=== PATIENT | female | born 1950 | race Asian ===

== ENCOUNTER 2016-12-13 21:10 | Observation (INO) | payer OTHER ==
--- NOTE | 2016-12-13 21:11 | EDPHY ---
H & P Time Seen by Provider: 12/13/16 21:11 HPI/ROS: CHIEF COMPLAINT: Chest pain HISTORY OF PRESENT ILLNESS: EMS arrival. Patient was sitting at her desk at work this evening when she had sudden onset of substernal chest discomfort which was severe. She describes it as a heaviness and radiated up into her neck on both sides, not exertional or pleuritic or positional. Not associated with nausea diaphoresis or shortness of breath. The pain was mild at the start and then proceeded to get worse. Described as a heaviness. Did not radiate to her back. Not associated with weakness or numbness in extremities. REVIEW OF SYSTEMS: Eye: no change in vision ENT: no sore throat Cardiac: No fainting Pulmonary: no cough or SOB Abdomen: no vomiting, diarrhea, abdominal pain Musculoskeletal: no back pain or recent trauma or leg swelling. Skin: no rash Neuro: no headache Constitutional: no fever : no urinary symptoms A comprehensive 10 point review of systems is otherwise negative aside from elements mentioned in the history of present illness. PAST MEDICAL HISTORY: Hypertension, hypercholesterolemia, thyroid Family history: Negative for DVT or PE Social history: Nonsmoker. PCP in [place]. No recent travel or immobilization. General Appearance: Alert and conversant, cooperative. Eyes: No scleral icterus. ENT, Mouth: Normal mucous membranes. Respiratory: Normal respiratory effort, breath sounds equal, lungs are clear to auscultation. Cardiovascular: Regular rate and rhythm. Gastrointestinal: Abdomen is soft and non tender. Neurological: Alert and oriented x3. Normally conversant. Face symmetric, normal movement and sensation in all extremities. 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 Skin: Warm and dry, no rashes. Musculoskeletal: No peripheral edema and no joint swelling. No calf tenderness. Psychiatric: Not agitated. Emergency Department course/MDM: History and risk factors concerning for acute coronary syndrome. EKG reviewed shows Q-waves in V1 and V2 but no acute ST elevation. Patient received oral aspirin in the field by EMS. Still has a little bit of residual chest discomfort on arrival, and systolic blood pressure noted at 225. IV nitroglycerin drip, troponin, chest x-ray. 2200: No chest pain now. Patient initially wanted to leave because she "does not like hospitals" but she is warned that my concern for acute coronary syndrome is high, her family is attempting to get her to agree to stay. Recommended admission for coronary artery disease evaluation, risk stratification. I believe she is at least moderate risk for ACS. Constitutional: Initial Vital Signs Temperature (C) 36.9 C 12/13/16 21:13 Heart Rate 80 12/13/16 21:13 Respiratory Rate 14 12/13/16 21:13 Blood Pressure 225/79 H 12/13/16 21:13 O2 Sat (%) 96 12/13/16 21:13 O2 Delivery Mode Nasal Cannula O2 (L/minute) 2 Allergies/Adverse Reactions: No Known Allergies Allergy (Verified 12/13/16 21:19) Home Medications: Medication Instructions Recorded Atorvastatin Calcium [Lipitor 40 40 mg PO DAILY 12/13/16 mg (*)] Cholecalciferol Vit D3 [Vitamin D3 1,000 units PO DAILY 12/13/16 (*)] Levothyroxine [Synthroid 25 mcg 25 mcg PO DAILY@12/13/16 (*)] [place]-3 Fatty Acids [Fish Oil 1000 1,000 mg PO DAILY 12/13/16 mg (*)] Venlafaxine Xr [Effexor Xr 75MG 75 mg PO DAILY 12/13/16 (*)] amLODIPine BESYLATE [Amlodipine 10 mg PO DAILY@12/13/16 Besylate] Medical Decision Making - Diagnostics EKG Interpretation: 12-lead EKG interpreted by me; official reading is in trace master. My interpretation is sinus rhythm, Q-waves noted in V1 and V2. No acute ST elevation. Imaging Results: Imaging Impressions Chest X-Ray 12/13/16 21:21 Impression: No significant radiographic abnormality. Specifically, a source for chest pain is not identified. Differential Diagnosis: Differential diagnosis considered for chest pain including but not limited to myocardial ischemia, aortic dissection, pericarditis, pulmonary embolus, chest wall pain, pleural inflammation and pulmonary infectious causes. Consult/Admit Bed Type: [place] [id number] - Data Points Laboratory Results: Laboratory Results 12/13/16 21:20 12/13/16 21:20 12/13/16 12/13/16 21:20 21:20 WBC 6.73 10^3/uL 10^3/uL (3.80-9.50) RBC 5.23 10^6/uL 10^6/uL (4.18-5.33) Hgb 15.4 g/dL g/dL (12.6-16.3) Hct 46.7 % % (38.0-47.0) MCV 89.3 fL fL (81.5-99.8) MCH 29.4 pg pg (27.9-34.1) MCHC 33.0 g/dL g/dL (32.4-36.7) RDW 12.4 % % (11.5-15.2) Plt Count 344 10^3/uL 10^3/uL (150-400) MPV 10.2 fL fL (8.7-11.7) Neut % (Auto) 50.4 % % (39.3-74.2) Lymph % (Auto) 41.3 % % (15.0-45.0) [place] % (Auto) 7.0 % % (4.5-13.0) Eos % (Auto) 0.4 % L % (0.6-7.6) Baso % (Auto) 0.6 % % (0.3-1.7) Nucleat RBC Rel Count 0.0 % % (0.0-0.2) Absolute Neuts (auto) 3.39 10^3/uL 10^3/uL (1.70-6.50) Absolute Lymphs (auto) 2.78 10^3/uL 10^3/uL (1.00-3.00) Absolute Monos (auto) 0.47 10^3/uL 10^3/uL (0.30-0.80) Absolute Eos (auto) 0.03 10^3/uL 10^3/uL (0.03-0.40) Absolute Basos (auto) 0.04 10^3/uL 10^3/uL (0.02-0.10) Absolute Nucleated RBC 0.00 10^3/uL 10^3/uL (0-0.01) Immature Gran % 0.3 % % (0.0-1.1) Immature Gran # 0.02 10^3/uL 10^3/uL (0.00-0.10) Sodium 141 mEq/L mEq/L (134-144) Potassium 4.5 mEq/L mEq/L (3.5-5.2) Chloride 102 mEq/L mEq/L (97-110) Carbon Dioxide 24 mEq/l mEq/l (22-31) Anion Gap 15 mEq/L mEq/L (8-16) BUN 19 mg/dL mg/dL (7-23) Creatinine 0.8 mg/dL mg/dL (0.6-1.0) Estimated GFR > 60 Glucose 106 mg/dL H mg/dL (70-100) Calcium 10.0 mg/dL mg/dL (8.5-10.4) Troponin I < 0.012 ng/mL ng/mL (0-0.034) Medications Given: Discontinued Medications Nitroglycerin/Dextrose (Nitroglycerin 200 Mcg/Ml (Premix)) 250 mls @ 0 mls/hr IV CONT ONE; Titrate PRN Reason: Protocol Stop: 12/13/16 21:22 Last Admin: 12/13/16 21:23 Dose: 250 mls Departure - Departure Disposition: [facility] Inpatient Acute Clinical Impression: Chest pain Qualifiers: Chest pain type: unspecified Qualified Code(s): R07.9 - Chest pain, unspecified Condition: Good
[2016-12-13] MEDS ORDERED: NITROGLYCERIN/D5W 50 MG/250 ML BOTTLE IV ONE (21:19)
--- NOTE | 2016-12-13 21:19 | CPEKG ---
Heart Rate: 78 RR Interval: 769 P-R Interval: 140 QRSD Interval: 76 QT Interval: 408 QTC Interval: 465 P [place]: 46 QRS [place]: 53 T Wave [place]: 45 EKG Severity - ABNORMAL ECG - EKG Impression: SINUS RHYTHM EKG Impression: CONSIDER ANTEROSEPTAL INFARCT Electronically Signed By: Tra Pereira 13-Dec-2016 21:27:11
[2016-12-13] MEDS: NITROGLYCERIN/DEXTROSE 250 ML IV ONE ×2 (21:23→23:12)
[2016-12-13 21:32] LABS: % IMMATURE GRANULYOCYTES 0.3 % (0.0-1.1); ABSOLUTE IMMATURE GRANULOCYTES 0.02 10^3/uL (0.00-0.10); ADD DIFF? NO; ADD MORPH? NO; ADD SCAN? NO; ATYPICAL LYMPHOCYTE FLAG 20 (0-99); FRAGMENT RBC FLAG 0 (0-99); HEMATOCRIT 46.7 % (38.0-47.0); HEMOGLOBIN 15.4 g/dL (12.6-16.3); LEFT SHIFT FLG 0 (0-99); LIPEMIA HEMOLYSIS FLAG 80 (0-99); MEAN CELL HEMOGLOBIN 29.4 pg (27.9-34.1); MEAN CELL VOLUME 89.3 fL (81.5-99.8); MEAN PLATELET VOLUME 10.2 fL (8.7-11.7); PLATELET CLUMPS FLAG 10 (0-99); PLATELET COUNT 344 10^3/uL (150-400); RED BLOOD CELL COUNT 5.23 10^6/uL (4.18-5.33); RED CELL DISTRIBUTION WIDTH 12.4 % (11.5-15.2)
[2016-12-13 21:44] LABS: ANION GAP 15 mEq/L (8-16); CARBON DIOXIDE 24 mEq/l (22-31); CHLORIDE 102 mEq/L (97-110); CREATININE 0.8 mg/dL (0.6-1.0); GLOMERULAR FILTRATION RATE > 60; GLUCOSE 106 mg/dL (70-100); POTASSIUM 4.5 mEq/L (3.5-5.2); SODIUM 141 mEq/L (134-144)
[2016-12-13 21:55] LABS: TROPONIN I < 0.012 ng/mL (0-0.034)
[2016-12-13] MEDS ORDERED: ONDANSETRON 4 MG/2 ML VIAL IVP PRN (23:47)
[2016-12-13] MEDS ORDERED: ACETAMINOPHEN 325 MG TAB PO PRN (23:47)
[2016-12-13] MEDS ORDERED: ONDANSETRON DISINTEGRATING 4 MG TAB PO PRN (23:47)
[2016-12-13] MEDS ORDERED: LABETALOL HCL 200 MG TAB PO ONE (23:52)
[2016-12-14] MEDS ORDERED: diphenhydrAMINE 25 MG CAP PO PRN
[2016-12-14] MEDS ORDERED: diphenhydrAMINE 25 MG CAP PO ONE (00:01)
--- NOTE | 2016-12-14 00:39 | PDGENHP ---
History and Physical - Chief Complaint Chest pain - History of Present Illness 62 yo F w/ hx of HTN, HLD, depression, and hypothyroid presenting after episode of chest pain. Patient reports episode of acute onset chest pain @8:20 PM while working. She had severe chest pain that lasted 3-5 min, radiated up right neck, and was associated with blurred vision. The pain abated briefly and then returned until she was give ASA 325 x1. At this point the pain improved. Upon arrival to the ED, she was noted to have SBP > 220. She was placed on a nitro drip and her symptoms improved. She was chest pain free at the time of my evaluation. History Information - Allergies/Home Medication List Allergies/Adverse Reactions: No Known Allergies Allergy (Verified 12/13/16 21:19) Home Medications: Atorvastatin Calcium [Lipitor 40 mg (*)] 40 mg PO DAILY 12/13/16 [Last Taken 10/24] Cholecalciferol Vit D3 [Vitamin D3 (*)] 1,000 units PO DAILY 12/13/16 [Last Taken 12/13/16] Levothyroxine [Synthroid 25 mcg (*)] 25 mcg PO DAILY@12/13/16 [Last Taken 10/24] [place]-3 Fatty Acids [Fish Oil 1000 mg (*)] 1,000 mg PO DAILY 12/13/16 [Last Taken 12/13/16] Venlafaxine Xr [Effexor Xr 75MG (*)] 75 mg PO DAILY 12/13/16 [Last Taken ] amLODIPine BESYLATE [Amlodipine Besylate] 10 mg PO DAILY@12/13/16 [Last Taken 12/13/16 01:00] I have personally reviewed and updated: family history, medical history - Past Medical History hypertension, hyperlipidemia Additional medical history: Depression, hypothyroid - Surgical History Reports: no pertinent surgical hx - Family History Negative for: CAD - Social History Smoking Status: Never smoked Alcohol Use: None Drug Use: None Review of Systems ROS: 10pt was reviewed & negative except for what was stated in HPI & below Physical Exam Temp Pulse Resp BP Pulse Ox 36.6 C 74 14 165/89 H 99 12/13/16 23:25 12/14/16 00:00 12/14/16 00:00 12/14/16 00:00 12/14/16 00:00 Constitutional: no apparent distress, appears nourished Eyes: PERRL, EOMI Ears, Nose, Mouth, Throat: moist mucous membranes, no oral mucosal ulcers Cardiovascular: regular rate and rhythym, no murmur, rub, or gallop Respiratory: no respiratory distress, clear to auscultation Gastrointestinal: normoactive bowel sounds, soft, non-tender abdomen Skin: warm, no rashes or abrasions Musculoskeletal: full muscle strength, no muscle tenderness Neurologic: AAOx3, CN II-XII Intact Psychiatric: interacting appropriately, not anxious Lab Data & Imaging Review 12/13/16 21:20 12/13/16 21:20 WBC 6.73 10^3/uL (3.80-9.50) 12/13/16 21:20 RBC 5.23 10^6/uL (4.18-5.33) 12/13/16 21:20 Hgb 15.4 g/dL (12.6-16.3) 12/13/16 21:20 Hct 46.7 % (38.0-47.0) 12/13/16 21:20 MCV 89.3 fL (81.5-99.8) 12/13/16 21:20 MCH 29.4 pg (27.9-34.1) 12/13/16 21:20 MCHC 33.0 g/dL (32.4-36.7) 12/13/16 21:20 RDW 12.4 % (11.5-15.2) 12/13/16 21:20 Plt Count 344 10^3/uL (150-400) 12/13/16 21:20 MPV 10.2 fL (8.7-11.7) 12/13/16 21:20 Neut % (Auto) 50.4 % (39.3-74.2) 12/13/16 21:20 Lymph % (Auto) 41.3 % (15.0-45.0) 12/13/16 21:20 [place] % (Auto) 7.0 % (4.5-13.0) 12/13/16 21:20 Eos % (Auto) 0.4 % (0.6-7.6) L 12/13/16 21:20 Baso % (Auto) 0.6 % (0.3-1.7) 12/13/16 21:20 Nucleat RBC Rel Count 0.0 % (0.0-0.2) 12/13/16 21:20 Absolute Neuts (auto) 3.39 10^3/uL (1.70-6.50) 12/13/16 21:20 Absolute Lymphs (auto) 2.78 10^3/uL (1.00-3.00) 12/13/16 21:20 Absolute Monos (auto) 0.47 10^3/uL (0.30-0.80) 12/13/16 21:20 Absolute Eos (auto) 0.03 10^3/uL (0.03-0.40) 12/13/16 21:20 Absolute Basos (auto) 0.04 10^3/uL (0.02-0.10) 12/13/16 21:20 Absolute Nucleated RBC 0.00 10^3/uL (0-0.01) 12/13/16 21:20 Immature Gran % 0.3 % (0.0-1.1) 12/13/16 21:20 Immature Gran # 0.02 10^3/uL (0.00-0.10) 12/13/16 21:20 Sodium 141 mEq/L (134-144) 12/13/16 21:20 Potassium 4.5 mEq/L (3.5-5.2) 12/13/16 21:20 Chloride 102 mEq/L (97-110) 12/13/16 21:20 Carbon Dioxide 24 mEq/l (22-31) 12/13/16 21:20 Anion Gap 15 mEq/L (8-16) 12/13/16 21:20 BUN 19 mg/dL (7-23) 12/13/16 21:20 Creatinine 0.8 mg/dL (0.6-1.0) 12/13/16 21:20 Estimated GFR > 60 12/13/16 21:20 Glucose 106 mg/dL (70-100) H 12/13/16 21:20 Calcium 10.0 mg/dL (8.5-10.4) 12/13/16 21:20 Troponin I < 0.012 ng/mL (0-0.034) 12/13/16 21:20 EKG Interpretation: Positive for: Q waves (V1, V2) Assessment & Plan Assessment: 62 yo F w/ HTN, HLD, hypothyroid, and depression presenting after episode of acute chest pain and noted to be severely hypertensive on arrival. Plan: 1. Chest pain - Certainly concerning for cardiac chest pain noting severity, radiation to neck, and relief with ASA/nitro. Severe HTN could be contributory or causative as well. Initial troponin negative and ECG with Q waves in V1, V2. Patient chest pain free after nitro drip and control of BP. - S/p ASA 325 mg x1 - Monitor on telemetry, trend troponin - BP control as below - Cardiology consult 2. Uncontrolled HTN - SBP > 220 on arrival, but this was in the setting of pain and stress. SBP 160-180 after nitro drip and time to calm down. On amlodipine 10 mg qD only as outpatient. - Will likely need additional agent for control - Will aim to maintain BP <180 to limit LV strain 3. Hypothyroid - On LTX 4. Depression - On venlafaxine Diet - NPO Ppx - LMWH Code - Full Dispo - Admit to observation for ACS r/o. May become inpatient if objective evidence of ischemia
[2016-12-14 03:31] LABS: % IMMATURE GRANULYOCYTES 0.2 % (0.0-1.1); ABSOLUTE IMMATURE GRANULOCYTES 0.01 10^3/uL (0.00-0.10); ADD DIFF? NO; ADD MORPH? NO; ADD SCAN? NO; ATYPICAL LYMPHOCYTE FLAG 10 (0-99); FRAGMENT RBC FLAG 0 (0-99); HEMATOCRIT 40.6 % (38.0-47.0); HEMOGLOBIN 13.6 g/dL (12.6-16.3); LEFT SHIFT FLG 0 (0-99); LIPEMIA HEMOLYSIS FLAG 80 (0-99); MEAN CELL HEMOGLOBIN 29.8 pg (27.9-34.1); MEAN CELL HEMOGLOBIN CONCENTR. 33.5 g/dL (32.4-36.7); MEAN CELL VOLUME 88.8 fL (81.5-99.8); PLATELET CLUMPS FLAG 0 (0-99); PLATELET COUNT 284 10^3/uL (150-400); RED BLOOD CELL COUNT 4.57 10^6/uL (4.18-5.33); RED CELL DISTRIBUTION WIDTH 12.4 % (11.5-15.2)
[2016-12-14 04:13] LABS: ANION GAP 13 mEq/L (8-16); CALCIUM 9.1 mg/dL (8.5-10.4); CARBON DIOXIDE 23 mEq/l (22-31); CHLORIDE 108 mEq/L (97-110); CREATININE 0.7 mg/dL (0.6-1.0); GLOMERULAR FILTRATION RATE > 60; GLUCOSE 87 mg/dL (70-100); MAGNESIUM 2.3 mg/dL (1.6-2.3); POTASSIUM 3.5 mEq/L (3.5-5.2); SODIUM 144 mEq/L (134-144)
[2016-12-14 04:25] LABS: TROPONIN I < 0.012 ng/mL (0-0.034)
[2016-12-14] MEDS ORDERED: ENOXAPARIN 40 MG/0.4 ML SYR SC SCH (09:00)
[2016-12-14] MEDS ORDERED: TEMAZEPAM 15 MG CAP PO PRN (10:29)
[2016-12-14] MEDS ORDERED: ASPIRIN EC 325 MG TAB PO ONE (10:29)
[2016-12-14] MEDS ORDERED: NITROGLYCERIN 0.4 MG BTL SL PRN (10:29)
[2016-12-14] MEDS ORDERED: DIAZEPAM 5 MG TAB PO ONE (10:29)
--- NOTE | 2016-12-14 10:34 | PDCARCONS ---
Cardiology Consult Reason for Consult: Chest pain Chief Complaint: chest pain History of Present Illness: 62-year-old female, history of hypertension controlled on medical therapy, history of prediabetes, history of hyperlipidemia on statin admitted with acute onset substernal chest pressure radiating to her jaw. She had 2 episodes 5 minutes apart. They occurred during extreme emotional stress. They are not associated with shortness of breath, nausea, vomiting, diaphoresis. She came to the emergency department for further evaluation and was admitted. Patient denies PND orthopnea, palpitations, syncope, near syncope. General review of systems is abnormal for decreased appetite, loss of taste of food, 4 lb weight loss. She is under considerable stress at work. Cardiac Risk includes hypertension, diabetes, hyperlipidemia. There is no family history. She is a nonsmoker. She is currently not having active chest pressure. History Information - Allergies/Home Medication List Allergies/Adverse Reactions: No Known Allergies Allergy (Verified 12/13/16 21:19) Home Medications: Atorvastatin Calcium [Lipitor 40 mg (*)] 40 mg PO DAILY 12/13/16 [Last Taken 10/24] Cholecalciferol Vit D3 [Vitamin D3 (*)] 1,000 units PO DAILY 12/13/16 [Last Taken 12/13/16] Levothyroxine [Synthroid 25 mcg (*)] 25 mcg PO DAILY@12/13/16 [Last Taken 10/24] [place]-3 Fatty Acids [Fish Oil 1000 mg (*)] 1,000 mg PO DAILY 12/13/16 [Last Taken 12/13/16] Venlafaxine Xr [Effexor Xr 75MG (*)] 75 mg PO DAILY 12/13/16 [Last Taken ] amLODIPine BESYLATE [Amlodipine Besylate] 10 mg PO DAILY@12/13/16 [Last Taken 12/13/16 01:00] I have personally reviewed and updated: family history, medical history, social history, surgical history - Past Medical History diabetes type 2, hypertension, hyperlipidemia - Surgical History Reports: no pertinent surgical hx - Social History Smoking Status: Never smoked Alcohol Use: None Drug Use: None Cardiac History - Cardiac History Cardiac Risk Factors: hypertension (>140/90), lipidemia, diabetes mellitus Timing/Duration: Days Severity: severe Severity Scale: 8 Location: substernal Activities at Onset: emotional stress, rest Modifying Factors: improves with: rest Associated Symptoms: other (Radiate to jaw) ERNESTO Risk Evaluation age greater or equal to 65: no greater or equal to 3 CAD risk factors: yes known CAD(stenosis greater or eqaul to 50%): no ASA use in past 7 days: yes severe angina(greater or equal to 2 episodes in 24hrs): yes EKG ST changes greater or equal to 0.5mm: no positive cardiac marker: no Total Score: 3 ERNESTO Score: 13.2% risk Physical Exam Temp Pulse Resp BP Pulse Ox 36.7 C 63 19 141/75 H 96 12/14/16 07:39 12/14/16 07:39 12/14/16 07:39 12/14/16 07:39 12/14/16 07:39 Constitutional: no apparent distress, appears nourished Eyes: PERRL, anicteric sclera Ears, Nose, Mouth, Throat: moist mucous membranes Cardiovascular: regular rate and rhythym, no murmur, rub, or gallop, No JVD Peripheral Pulses: 1+: carotid (R), carotid (L), femoral (R), femoral (L), dorsalis-pedis (R), dorsalis-pedis (L) Respiratory: no respiratory distress, no rales or rhonchi, clear to auscultation Gastrointestinal: normoactive bowel sounds, soft, non-tender abdomen, no palpable masses Genitourinary: no bladder fullness Skin: warm, normal color, no rashes or abrasions Musculoskeletal: full muscle strength, no muscle tenderness, No joint effusion Neurologic: AAOx3, sensation intact bilaterally, No weakness Psychiatric: interacting appropriately, not anxious Lymph, Heme, Immunologic: no cervical LAD, no supraclavicular LAD Lab and Imaging 12/14/16 03:15 12/14/16 03:15 WBC 6.10 10^3/uL (3.80-9.50) 12/14/16 03:15 RBC 4.57 10^6/uL (4.18-5.33) 12/14/16 03:15 Hgb 13.6 g/dL (12.6-16.3) 12/14/16 03:15 Hct 40.6 % (38.0-47.0) 12/14/16 03:15 MCV 88.8 fL (81.5-99.8) 12/14/16 03:15 MCH 29.8 pg (27.9-34.1) 12/14/16 03:15 MCHC 33.5 g/dL (32.4-36.7) 12/14/16 03:15 RDW 12.4 % (11.5-15.2) 12/14/16 03:15 Plt Count 284 10^3/uL (150-400) D 12/14/16 03:15 MPV 10.0 fL (8.7-11.7) 12/14/16 03:15 Neut % (Auto) 49.5 % (39.3-74.2) 12/14/16 03:15 Lymph % (Auto) 42.1 % (15.0-45.0) 12/14/16 03:15 [place] % (Auto) 7.2 % (4.5-13.0) 12/14/16 03:15 Eos % (Auto) 0.5 % (0.6-7.6) L 12/14/16 03:15 Baso % (Auto) 0.5 % (0.3-1.7) 12/14/16 03:15 Nucleat RBC Rel Count 0.0 % (0.0-0.2) 12/14/16 03:15 Absolute Neuts (auto) 3.02 10^3/uL (1.70-6.50) 12/14/16 03:15 Absolute Lymphs (auto) 2.57 10^3/uL (1.00-3.00) 12/14/16 03:15 Absolute Monos (auto) 0.44 10^3/uL (0.30-0.80) 12/14/16 03:15 Absolute Eos (auto) 0.03 10^3/uL (0.03-0.40) 12/14/16 03:15 Absolute Basos (auto) 0.03 10^3/uL (0.02-0.10) 12/14/16 03:15 Absolute Nucleated RBC 0.00 10^3/uL (0-0.01) 12/14/16 03:15 Immature Gran % 0.2 % (0.0-1.1) 12/14/16 03:15 Immature Gran # 0.01 10^3/uL (0.00-0.10) 12/14/16 03:15 Sodium 144 mEq/L (134-144) 12/14/16 03:15 Potassium 3.5 mEq/L (3.5-5.2) 12/14/16 03:15 Chloride 108 mEq/L (97-110) 12/14/16 03:15 Carbon Dioxide 23 mEq/l (22-31) 12/14/16 03:15 Anion Gap 13 mEq/L (8-16) 12/14/16 03:15 BUN 17 mg/dL (7-23) 12/14/16 03:15 Creatinine 0.7 mg/dL (0.6-1.0) 12/14/16 03:15 Estimated GFR > 60 12/14/16 03:15 Glucose 87 mg/dL (70-100) 12/14/16 03:15 Calcium 9.1 mg/dL (8.5-10.4) 12/14/16 03:15 Magnesium 2.3 mg/dL (1.6-2.3) 12/14/16 03:15 Troponin I < 0.012 ng/mL (0-0.034) 12/14/16 03:15 EKG Interpretation: Positive for: normal sinsus rhythm EKG additional interpertation: Anterior Q-waves A/P Assessment: Assessment: 62-year-old female 3 cardiovascular risk factors admitted with 2 episodes of 5 minutes of classic angina with substernal chest pressure radiating to the jaw. EKG shows anterior Q-waves, this may represent LVH versus prior myocardial infarction. Her troponins are negative. She is currently pain free. Patient needs risk stratification. Discussed options including treadmill testing versus elective angiography. In light of resting symptoms, radiation to the jaw, 3 risk factors and a ERNESTO risk score of 3 would recommend angiography. Discussed risks and benefits of this approach will proceed. Other medical problems 1. Weight loss associated with loss of taste of food. 2. Hypertension. 3. Hyperlipidemia. 4. Prediabetes. 5. Hypothyroidism on replacement. 6. GERD. Plan: Cardiac catheterization. Aggressive secondary prevention. Review of Systems - Review of Systems Constitutional: weight loss. denies: chills, fever EENTM: no symptoms reported Respiratory: no symptoms reported Cardiac: no symptoms reported, chest pain. denies: edema, irregular heart rate , lightheadedness, palpitations, syncope Gastrointestinal/Abdominal: no symptoms reported Genitourinary: no symptoms Musculoskelatal: no symptoms Skin: no symptoms Neurological: no symptoms, anxiety Hematologic/Lymphatic: no symptoms reported Immunologic/allergic: no symptoms reported Past Medical History - Personal History Tetanus Vaccine Date: 1999? - Medical/Surgical History Hx Asthma: No Hx Chronic Respiratory Disease: No Hx Cardiac Disease: Yes Hx Diabetes: No Hx Renal Disease: No Hx Alcoholism: No Hx Cirrhosis: No Hx HIV/AIDS: No Hx Splenectomy or Spleen Trauma: No Other PMH: HTN, Hypercholesterolemia, hypothyroid, gerd, depression, "pre- diabetes" - Social History Smoking Status: Never smoked
--- NOTE | 2016-12-14 11:06 | HOSPPROG ---
Hospitalist Progress Note Assessment/Plan: This is a 62-year-old female w/ HTN, HLD, hypothyroid, and depression new to my care on 12/14/16 presenting with: 1. Chest pain Concerning for acute coronary syndrome - cardiology consult was reviewed and appreciated. Plan for cardiac catheterization later today. 2. Hypertensive urgency versus emergency ( improved) - Will likely need additional agent for control - Will aim to maintain BP <180 to limit LV strain 3. Hypothyroid - On LTX 4. Depression - On venlafaxine Diet - NPO Ppx - LMWH Code - Full Dispo - continue observation care and await results of catheterization Subjective: no chest pain. no shortness of breath. feels better today Objective: Vital Signs Temp Pulse Resp BP Pulse Ox 36.7 C 63 19 141/75 H 96 12/14/16 07:39 12/14/16 07:39 12/14/16 07:39 12/14/16 07:39 12/14/16 07:39 Laboratory Results 12/14/16 03:15 12/14/16 03:15 12/13/16 12/14/16 12/15/16 05:59 05:59 05:59 Intake Total 525 Balance 525 Laboratory Tests 12/13/16 12/14/16 21:20 03:15 Troponin I < 0.012 < 0.012 visualized and personally interpreted the EKG done yesterday that shows Q- waves in the anterior septal leads - Physical Exam Constitutional: no apparent distress, appears nourished, not in pain Ears, Nose, Mouth, Throat: moist mucous membranes, hearing normal, ears appear normal, no oral mucosal ulcers Cardiovascular: regular rate and rhythym, no murmur, rub, or gallop Respiratory: no respiratory distress, no rales or rhonchi, clear to auscultation Gastrointestinal: normoactive bowel sounds, soft, non-tender abdomen, no palpable masses Neurologic: AAOx3, sensation intact bilaterally ICD10 Worksheet Patient Problems: Problems Problem Status Onset Chest pain Acute
[2016-12-14 11:36] VITALS: TEMP 98.1
[2016-12-14] MEDS ORDERED: LIDOCAINE 1% 300 MG/30 ML SDV ONE (13:48)
[2016-12-14] MEDS ORDERED: IOPAMIDOL (ISOVUE-370) 150 ML BTL IV ONE ×2 (13:49→14:42)
[2016-12-14] MEDS ORDERED: VERAPAMIL 5 MG/2 ML VIAL ONE (13:49)
[2016-12-14] MEDS ORDERED: HEPARIN 10,000 UNIT/10 ML MDV ONE (13:49)
[2016-12-14] MEDS ORDERED: fentaNYL 100 MCG/2 ML INJ ONE (13:49)
[2016-12-14] MEDS ORDERED: MIDAZOLAM 2 MG/2 ML VIAL ONE (13:49)
[2016-12-14 14:12] LABS: INR 1.03 (0.83-1.16); PROTIME(PATIENT) 13.4 SEC (12.0-15.0)
--- NOTE | 2016-12-14 14:54 | PDDXCAT ---
Diagnostic Cath Note - . Date: 12/14/16 Command And Control Officer: Jules Indication: CCC Class III and IV angina on medical treatment - Procedure Access: right wrist Procedure: left heart catheterization, coronary angiography, left ventriculogram - Materials Left Heart Cath size: 5F Left Heart Cath materials: pigtail, other ([email or web address]) - Findings-Left Heart Catheterization LM: Unobstructed LAD: Large vessel extends the apex. The level the principal diagonal there is a change in caliber of the blood vessel. 30% mid vessel stenosis. LCX: 30-40% mid circumflex artery stenosis. RCA: 30% mid RCA stenosis.: Dominant vessel EDP: 12 mm of mercury LVEF: 65 Wall motion: Normal Complications: None Closure method: TR Band Assessment: 1. [id number] atherosclerotic cardiovascular disease without focal stenosis. 2. Normal left ventricular systolic function. No evidence of prior myocardial infarction as suggested by ECG. Plan: Aggressive secondary prevention with clinical follow-up. Goal LDL cholesterol less than 70 mg/dL. Patient Problems: Problems Problem Status Onset Chest pain Acute
[2016-12-14 16:15] VITALS: RESP 14
--- NOTE | 2016-12-14 16:28 | ECHO ---
[id number] + + [address] : : [place] [address] : : [phone] + + Adult Echocardiographic Report + ---+ :Name: ERAN ANDREWSBhavesh Date: 12/14/2016 03:17 PM : : Hospital Admission Number: [id number] Location: [facility]: :: 06/14/1954 Gender: Female Height: 58 in : :Age: 62 yrs Race: Weight: 98 lb : :Reason For Study: Eval for PFO : : BSA: 1.3 meters2 : :History: Post Cath : + ---+ MMode/2D Measurements \T\ Calculations IVSd: 0.70 cm LVIDd: 4.4 cm FS: 46.6 % Ao root diam: 2.5 cm LVPWd: 0.84 cm LVIDs: 2.4 cm EDV(Teich): 88.5 ml ACS: 1.6 cm ESV(Teich): 19.3 ml LA dimension: 3.3 cm EF(Teich): 78.2 % Normal Measurement Values: + + :LVIDd (3.5-5.7cm) IVSd (0.6-1.1cm) LVPWd (0.6-1.1cm) Aortic Root (2.0-3.7cm)Left Atrium (1.5-4.0cm): :LV Vol(d) (76-115ml) LV Vol(s) (29-48ml) Ejec Fraction (50-65%)PV Fernando (0.6- 1.2m/s) TV Fernando (0.4-1.0m/s) : :MV E Fernando (0.8-1.0m/s)MV A Fernando (0.3-1.0m/s)LVOT Fernando (0.7-1.2m/s) Asc Ao Fernando ( 0.9-1.8m/s) : + + Doppler Measurements \T\ Calculations MV E max fernando: Ao V2 max: LV V1 max: MR max fernando: 82.9 cm/sec 143.7 cm/sec 68.6 cm/sec 417.0 cm/sec MV A max fernando: Ao max PG: LV V1 max PG: MR max P.3 cm/sec 8.3 mmHg 1.9 mmHg 70.0 mmHg MV E/A: 1.5 PA V2 max: 81.4 cm/sec PA max P.7 mmHg Left Ventricle The left ventricle is normal in size and function. There is normal left ventricular wall thickness. The left ventricular ejection fraction is normal. Ejection Fraction = 78%. The left ventricular wall motion is normal. Right Ventricle The right ventricle is normal in size and function. Atria The left atrial size is normal. Right atrial size is normal. Injection of contrast documented no interatrial shunt. The interatrial septum is intact with no evidence for an atrial septal defect. Mitral Valve The mitral valve is normal. There is no evidence of mitral valve prolapse. There is no mitral valve stenosis. There is mild mitral regurgitation. Tricuspid Valve Normal tricuspid valve. There is trace to mild tricuspid regurgitation. Right ventricular systolic pressure is normal. Aortic Valve The aortic valve is normal in structure and function. The aortic valve is trileaflet. There is no aortic stenosis. There is no aortic insufficiency. Pulmonic Valve The pulmonic valve is normal in structure and function. There is no pulmonic valvular regurgitation. Great Vessels The aortic root is normal size. Pericardium/Pleural There is no pericardial effusion. Conclusion A complete two-dimensional transthoracic echocardiogram was performed (2D, M-mode, Doppler and color flow Doppler). The left ventricle is normal in size and function. The left ventricular ejection fraction is normal. Ejection Fraction = 78%. The left ventricular wall motion is normal. The right ventricle is normal in size and function. There is mild mitral regurgitation. There is trace to mild tricuspid regurgitation. Right ventricular systolic pressure is normal. The aortic valve is normal in structure and function. There is no pericardial effusion. Injection of contrast documented no interatrial shunt. The interatrial septum is intact with no evidence for an atrial septal defect. Final Reading Physician: Emily Ramirez signed on 12/14/2016 04:27 PM Ordering Physician: SELVIN JEFFERS Performed By: Fortino Perkins, CS
[2016-12-14 18:16] VITALS: BP 131/53; PULSE 66; O2SAT 94
--- NOTE | 2016-12-14 18:19 | GDS ---
[f rep st] DISCHARGE SUMMARY DISCHARGE DIAGNOSES: 1. Hypertensive urgency. 2. Mild to moderate atherosclerotic cardiovascular disease without focal stenosis. 3. Hypothyroidism. 4. Depression. CONSULTANTS: Dr. Huy Vicente, [facility]. HOSPITAL COURSE: Hypertensive urgency, having chest pain: The patient was admitted to the Intensiv e Care Unit, where she was monitored on telemetry. Serial cardiac enzymes were done. She was taken to the cardiac [facility], where she was found to have mild to moderate atherosclerotic cardiovascula r disease without focal stenosis. Initially her hypertension was treated with IV nitroglycerin, whi ch was stopped. She was resumed on her home dose of Norvasc. On the afternoon of discharge, her bl ood pressure was 152/59. PHYSICAL EXAM ON DISCHARGE: Please refer to progress note in [facility]. PROCEDURES DONE: Cardiac catheterization done 12/14/2016, refer to report. Echocardiogram done 11/2016, refer to report. DISCHARGE MEDICATIONS: Please refer to discharge medication reconciliation in [facility] for details. Below is a preliminary list. NEW MEDICATIONS: On hospital discharge: Lisinopril 5 mg p.o. daily. All other home Medications were continued at her usual home dosages. DISCHARGE INSTRUCTIONS: The patient was discharged home, where she should follow up with her primar care provider in the next week for routine blood pressure check. She should also have her lipids checked on an outpatient basis to ensure her LDL is at goal of less than 70. She does take 40 mg of Lipitor per day. She should seek medical attention if her chest pain returns. /[id number]/MODL
[2016-12-15] MEDS ORDERED: LEVOTHYROXINE 25 MCG TAB PO SCH (01:00)
[2016-12-15] MEDS ORDERED: ATORVASTATIN CALCIUM 40 MG TAB PO SCH (09:00)
[2016-12-15] MEDS ORDERED: VENLAFAXINE XR 75 MG CAP PO SCH (09:00)
[2016-12-15] MEDS ORDERED: OMEGA-3 FATTY ACIDS 1,000 MG CAP PO SCH (09:00)
[2016-12-15] MEDS ORDERED: CHOLECALCIFEROL VIT D3 1,000 UNITS TAB PO SCH (09:00)
== END 2016-12-14 20:25 | disposition home or self-care (01) ==
LOC: EDUNIT# → EDBD → INTOOBSV 22:17 → F2N 23:00
PROVIDERS: ADMIT Student in an Organized Health Care Education/Training Program; ATTEND Student in an Organized Health Care Education/Training Program
PROC: B2151ZZ Fluoroscopy of Left Heart using Low Osmolar Contrast (ICD-10-PCS; principal; 2016-12-13)
PROC: 4A023N7 Measurement of Cardiac Sampling and Pressure, Left Heart, Percutaneous Approach (ICD-10-PCS; principal; 2016-12-13)
PROC: B2111ZZ Fluoroscopy of Multiple Coronary Arteries using Low Osmolar Contrast (ICD-10-PCS; principal; 2016-12-13)
DX: I10 Essential (primary) hypertension (principal); I25.10 Atherosclerotic heart disease of native coronary artery without angina pectoris; E03.9 Hypothyroidism, unspecified; F32.9 Major depressive disorder, single episode, unspecified
CPT/HCPCS: 71020; 93005; 93306; 93458; C1769; G0378; 96374; J1644; J1650; J2250; J3010; Q9967